=== PATIENT | female | born 1990 | race Caucasian/White ===

== ENCOUNTER → 2017-10-10 | Outpatient (REF) | payer OTHER, SELFPAY ==
[2017-10-13 14:14] LABS: HPV HYBRID CAPTURE II Positive (Negative)
== END ==
LOC: M LAB REF 17:59
DX: Z01.419 Encounter for gynecological examination (general) (routine) without abnormal findings (principal); Z11.51 Encounter for screening for human papillomavirus (HPV); R87.620 Atypical squamous cells of undetermined significance on cytologic smear of vagina (ASC-US)
CPT/HCPCS: G0123